=== PATIENT | male | born 1935 | race Hispanic/Latino ===

== ENCOUNTER → 2017-09-02 | Outpatient (CLI) | payer OTHER, MEDICARE ==
[~2017-09-02] MED LIST: AEC81 PO; AMLO10TA2 PO; CARV25TA PO; FURO40TA5 PO; ISOS60TA4 PO; LISI40TA4 PO; MULT-40 PO; OMEG-98 PO; SIMV20TA6 PO
== END | disposition home or self-care (01) ==
LOC: SHCH 13:07
PROVIDERS: ATTEND Internal Medicine Cardiovascular Disease
DX: I50.22 Chronic systolic (congestive) heart failure (principal); I25.5 Ischemic cardiomyopathy; I34.0 Nonrheumatic mitral (valve) insufficiency; Z95.0 Presence of cardiac pacemaker
CPT/HCPCS: 93306

== ENCOUNTER → 2021-09-09 | Outpatient (CLI) | payer OTHER, MEDICARE ==
[~2021-09-09] MED LIST changes: -AEC81 PO; +AMIO200T44 PO; -AMLO10TA2 PO; +APIX5TAB PO; -ISOS60TA4 PO; +ISOS60TA77 PO; -LISI40TA4 PO; -OMEG-98 PO; +ROSU10TA28 PO; +SACU1TAB7 PO; -SIMV20TA6 PO; +TAMS-1 PO
[2021-09-09 12:51] LABS: CREATININE 2.7 mg/dL (0.5-1.5); POTASSIUM 4.8 mmol/L (3.5-5.1)
== END | disposition home or self-care (01) ==
LOC: LAB 09:35
PROVIDERS: ATTEND Internal Medicine Cardiovascular Disease
DX: I50.82 Biventricular heart failure (principal)
CPT/HCPCS: 36415; 80048